=== PATIENT | female | born 1995 | race Caucasian/White ===

== ENCOUNTER 2020-11-08 07:57 | Inpatient (IN) ==
[2020-11-08 09:15] LABS: Basophils % 0.5 %; Eosinophils # 0.2 K/mcL (0.0-0.6); Eosinophils % 2.6 %; Hematocrit 35.7 % (35.3-44.9); Hemoglobin 11.2 g/dL (11.5-15.4); Immature Granulocytes % 0.4 % (0-4); Lymphocytes # 1.8 K/mcL (0.6-4.6); Lymphocytes % 23.6 %; Mean Corpuscular HGB Conc 31.4 g/dL (31.6-35.5); Mean Corpuscular Hemoglobin 25.6 pg (28.0-33.3); Mean Corpuscular Volume 81.7 fL (83.0-100.0); Monocytes # 0.4 K/mcL (0.0-1.3); Monocytes % 5.4 %; Neutrophils # 5.2 K/mcL (1.6-8.9); Platelet Count 273 K/mcL (140-400); Red Blood Count 4.37 M/mcL (3.82-4.97); Segmented Neutrophils % 67.5 %; White Blood Count 7.6 K/mcL (4.3-11.1)
[2020-11-08 09:19] LABS: Bacteria,Urine Few per hpf (None-Few); Bilirubin,Urine Negative (Negative); Blood,Urine Moderate (Negative); Clarity,Urine Turbid (Clear); Color,Urine Light-Yellow (Yellow); Glucose,Urine (UA) Normal (Normal); Ketones,Urine Negative (Negative); Leukocyte Esterase,Urine Small (Negative); Mucus,Urine Few per lpf (None-Few); Nitrite,Urine Negative (Negative); PH,Urine 6.5 pH Units (5.0-8.0); Protein,Urine Negative (Neg-Trace); RBC,Urine 0-3 per hpf (0-3); Specific Gravity,Urine 1.012 (1.010-1.025); Squamous Epithelial Cell,Urine Moderate per hpf (None-Few); Transitional Epi Cells,Urine Few per hpf (None-Few); Urobilinogen,Urine Normal (Normal)
[2020-11-08 09:32] LABS: Amphetamine Screen,Urine Negative ng/mL (Cutoff=1000); Barbiturate Screen,Urine Negative ng/mL (Cutoff=200); Benzodiazepines Screen,Urine Negative ng/mL (Cutoff=200); Cannabinoid Screen,Urine Negative ng/mL (Cutoff = 50); Cocaine Screen,Urine Negative ng/mL (Cutoff= 300); Opiate Screen,Urine Negative ng/mL (Cutoff=300); Phencyclidine Screen,Urine Negative ng/mL (Cutoff=25)
[2020-11-08 09:36] LABS: Acetaminophen < 10 mcg/mL (10-20); Alanine Aminotransferase 13 Units/L (7-52); Albumin 3.5 g/dL (3.5-5.7); Alkaline Phosphatase 58 Units/L (34-104); Aspartate Amino Transferase 16 Units/L (13-39); BUN/Creatinine Ratio 12 (6-26); Bilirubin,Indirect 0.2 mg/dL (0.0-1.0); Bilirubin,Total 0.2 mg/dL (0.3-1.0); Blood Urea Nitrogen 7 mg/dL (6-20); Calcium 9.2 mg/dL (8.6-10.3); Carbon Dioxide 28 mEq/L (23-29); Chloride 104 mEq/L (98-107); Chol/HDL Ratio 3.7 (0-4.9); Cholesterol 216 mg/dL (< 200); Ethanol < 10 mg/dL (Less than 10); Globulin 3.5 g/dL (2.4-3.5); Glucose 86 mg/dL (70-105); HDL Cholesterol 59 mg/dL (40-59); LDL Cholesterol,Calculated 112 mg/dL (< 100); Osmolality,Calculated 293 (280-300); Potassium 3.5 mEq/L (3.5-5.1); Salicylate < 2.5 mg/dL (15.0-30.0); Sodium 143 mEq/L (136-145); Triglycerides 225 mg/dL (< 150); eGFR For African Americans > 60 (> 60); eGFR For Non-African Americans > 60 (> 60)
[2020-11-08 11:23] LABS: Estimated Average Glucose 94 mg/dl; Hemoglobin A1C 4.9 %
[2020-11-08 13:41] LABS: Adenovirus Not Detected (Not Detect); Bordetella Pertussis Not Detected (Not Detect); Chlamydophila pneumoniae Not Detected (Not Detect); Coronavirus 229E Not Detected (Not Detect); Coronavirus HKU1 Not Detected (Not Detect); Coronavirus NL63 Not Detected (Not Detect); Coronavirus OC43 Not Detected (Not Detect); Human Metapneumovirus Not Detected (Not Detect); Human Rhinovirus/Enterovirus Not Detected (Not Detect); Influenza A Subtype 2009 H1 Not Detected (Not Detect); Influenza B Not Detected (Not Detect); Mycoplasma pneumoniae Not Detected (Not Detect); Parainfluenza Virus 1 Not Detected (Not Detect); Parainfluenza Virus 2 Not Detected (Not Detect); Parainfluenza Virus 3 Not Detected (Not Detect); Parainfluenza Virus 4 Not Detected (Not Detect); Respiratory Syncytial Virus Not Detected (Not Detect); SARS-CoV-2 Not Detected (Not Detect)
[2020-11-08] MEDS ORDERED: Acetaminophen 325 MG TABLET PO PRN (13:48)
[2020-11-08] MEDS ORDERED: haloperidoL 5 MG TABLET PO PRN (13:48)
[2020-11-08] MEDS ORDERED: *HR* LORazepam 2 MG/ML VIAL IM PRN (13:48)
[2020-11-08] MEDS ORDERED: Haloperidol Lactate 5 MG/ML VIAL IM PRN (13:48)
[2020-11-08] MEDS ORDERED: MOM Conc 10 ML UD.LIQ PO PRN (13:48)
[2020-11-08] MEDS ORDERED: *HR* LORazepam 1 MG TABLET PO PRN (13:48)
[2020-11-08] MEDS ORDERED: Mag Hydrox/Al Hydrox/Simeth 30 ML UDC PO PRN (13:48)
[2020-11-08] MEDS ORDERED: Ibuprofen 800 MG TABLET PO PRN (13:55)
[2020-11-08] MEDS: hydrOXYzine pamoate 25 MG CAPSULE PO PRN (18:06)
[2020-11-09] MEDS ORDERED: PARoxetine 20 MG TABLET PO SCH (13:30)
[2020-11-09] MEDS: PARoxetine 20 MG TABLET PO SCH (16:34)
[2020-11-09] MEDS: traZODone 50 MG TABLET PO PRN (20:44)
[2020-11-09] MEDS: hydrOXYzine pamoate 25 MG CAPSULE PO PRN (20:44)
[2020-11-10] MEDS: PARoxetine 20 MG TABLET PO SCH (08:46)
[2020-11-10] MEDS: traZODone 50 MG TABLET PO PRN (20:42)
[2020-11-10] MEDS: hydrOXYzine pamoate 25 MG CAPSULE PO PRN (20:42)
[2020-11-11] MEDS: PARoxetine 20 MG TABLET PO SCH (08:43)
[2020-11-11] MEDS: traZODone 50 MG TABLET PO PRN (21:51)
[2020-11-11] MEDS: hydrOXYzine pamoate 25 MG CAPSULE PO PRN (21:51)
[2020-11-12] MEDS: PARoxetine 20 MG TABLET PO SCH (08:59)
[2020-11-12 09:32] VITALS: BP 112/74
== END 2020-11-12 13:15 | disposition home or self-care (01) | DRG 751 ==
LOC: EMEROOARM 07:57 → 1ANU 14:11
PROVIDERS: ADMIT Psychiatry & Neurology Psychiatry; ATTEND Psychiatry & Neurology Psychiatry

== ENCOUNTER 2021-11-22 19:40 | Inpatient (IN) ==
[~2021-11-22 19:40] MED LIST: *HR* Nalbuphine 10 MG/ML AMPUL IV PRN; Azithromycin 500 MG in 0.9 % Sodium Chloride 250 ML IVPB PRN; Famotidine 20 MG/2 ML VIAL IVP PRN; Metoclopramide 10 MG/2 ML VIAL IVP PRN; Naloxone 0.4 MG/ML INJ IVP PRN; Ondansetron 4 MG/2 ML VIAL IVP PRN
[2021-11-22] MEDS ORDERED: Ringers Solution, Lactated 1,000 ML IVC SCH (19:45)
[2021-11-22] MEDS ORDERED: *HR* Oxytocin 10 UNIT/ML VIAL ONE (19:53)
[2021-11-22] MEDS ORDERED: Oxytocin 30 UNIT/503 ML BAG IVC ONE (19:55)
[2021-11-22] MEDS ORDERED: Vancomycin (wt based) 1,000 MG VIAL IVPB SCH (20:00)
[2021-11-22] MEDS ORDERED: Vancomycin 2,000 MG/520 ML IV.SOLN IVPB ONE (20:06)
[2021-11-22] MEDS ORDERED: *HR* FentaNYL (PF) 100 MCG/2 ML VIAL IVP ONE (20:12)
[2021-11-22] MEDS ORDERED: *HR* FentaNYL (PF) 100 MCG/2 ML VIAL ONE (20:13)
[2021-11-22 20:17] LABS: Basophils % 0.2 %; Eosinophils # 0.1 K/mcL (0.0-0.6); Eosinophils % 0.8 %; Hematocrit 33.5 % (35.3-44.9); Hemoglobin 10.4 g/dL (11.5-15.4); Immature Granulocytes % 0.4 % (0-4); Lymphocytes # 1.7 K/mcL (0.6-4.6); Lymphocytes % 13.2 %; Mean Corpuscular Hemoglobin 23.6 pg (28.0-33.3); Mean Platelet Volume 11.1 fL (9.4-12.4); Monocytes # 0.6 K/mcL (0.0-1.3); Neutrophils # 10.2 K/mcL (1.6-8.9); Platelet Count 294 K/mcL (140-400); Red Blood Count 4.41 M/mcL (3.82-4.97); Red Cell Distribution Width 17.7 % (11.5-14.5); Segmented Neutrophils % 80.4 %; White Blood Count 12.7 K/mcL (4.3-11.1)
[2021-11-22 20:29] LABS: Amphetamine Screen,Urine Negative ng/mL (Cutoff=1000); Barbiturate Screen,Urine Negative ng/mL (Cutoff=200); Benzodiazepines Screen,Urine Negative ng/mL (Cutoff=200); Cannabinoid Screen,Urine Negative ng/mL (Cutoff = 50); Cocaine Screen,Urine Negative ng/mL (Cutoff= 300); Opiate Screen,Urine Negative ng/mL (Cutoff=300); Phencyclidine Screen,Urine Negative ng/mL (Cutoff=25)
[2021-11-22] MEDS ORDERED: Rho Immune Globulin 1,500 UNIT SYRINGE IM PRN (23:13)
[2021-11-22] MEDS ORDERED: Ondansetron ODT 4 MG TAB.RAPDIS SL PRN (23:13)
[2021-11-22] MEDS ORDERED: Benzocaine/Menthol 56 GM AEROSOL SPRAY TP PRN (23:13)
[2021-11-22] MEDS ORDERED: Lanolin 7 G OINT...G. TP PRN (23:13)
[2021-11-22] MEDS ORDERED: Oxytocin 30 UNIT/503 ML BAG IVC SCH (23:13)
[2021-11-22] MEDS: Acetaminophen 325 MG TABLET PO SCH (23:36)
[2021-11-22] MEDS: Ibuprofen 600 MG TABLET PO SCH (23:36)
[2021-11-23 03:21] LABS: Basophils % 0.2 %; Eosinophils % 0.3 %; Hematocrit 29.2 % (35.3-44.9); Immature Granulocytes % 0.5 % (0-4); Lymphocytes # 1.5 K/mcL (0.6-4.6); Lymphocytes % 12.2 %; Mean Corpuscular HGB Conc 30.8 g/dL (31.6-35.5); Mean Corpuscular Hemoglobin 23.3 pg (28.0-33.3); Mean Corpuscular Volume 75.6 fL (83.0-100.0); Mean Platelet Volume 11.3 fL (9.4-12.4); Monocytes # 0.8 K/mcL (0.0-1.3); Monocytes % 6.2 %; Neutrophils # 10.1 K/mcL (1.6-8.9); Platelet Count 237 K/mcL (140-400); Red Blood Count 3.86 M/mcL (3.82-4.97); Red Cell Distribution Width 17.6 % (11.5-14.5); Segmented Neutrophils % 80.6 %; White Blood Count 12.5 K/mcL (4.3-11.1)
[2021-11-23] MEDS ORDERED: Vancomycin 2,000 MG/520 ML IV.SOLN IVPB SCH (04:00)
[2021-11-23] MEDS: Acetaminophen 325 MG TABLET PO SCH ×3 (05:36→20:20)
[2021-11-23] MEDS: Ibuprofen 600 MG TABLET PO SCH ×3 (05:38→20:20)
[2021-11-23] MEDS ORDERED: Prenatal Vit/FA 1 EACH TABLET PO SCH (09:00)
[2021-11-23 16:32] VITALS: BP 124/60; PULSE 99; O2SAT 99
[2021-11-23 16:36] VITALS: TEMP 97.4
== END 2021-11-23 21:00 | disposition home or self-care (01) | DRG 806 ==
LOC: 1NENULAB → 1NENUOBS 23:05
PROVIDERS: ADMIT Advanced Practice Midwife; ATTEND Advanced Practice Midwife